=== PATIENT | female | born 1980 | race Hispanic/Latino ===

== ENCOUNTER 2018-01-25 15:00 | Outpatient (CLI) | payer OTHER | END 2018-01-25 15:01 | disposition home or self-care (01) | LOC: BICMAMMO 15:00 | PROVIDERS: ATTEND Internal Medicine Cardiovascular Disease | DX: N63.0 Unspecified lump in unspecified breast (principal) | CPT/HCPCS: 77066; G0279 ==

== ENCOUNTER 2018-04-12 09:44 | Outpatient (CLI) | payer OTHER | END 2018-04-12 09:45 | disposition home or self-care (01) | LOC: SCSMRI 09:44 | PROVIDERS: ATTEND Nurse Practitioner Family | DX: M47.816 Spondylosis without myelopathy or radiculopathy, lumbar region (principal) | CPT/HCPCS: 72148 ==

== ENCOUNTER 2018-04-29 09:33 | Outpatient (CLI) | payer OTHER | END 2018-04-29 09:34 | disposition home or self-care (01) | LOC: BICULT 09:33 | PROVIDERS: ATTEND Family Medicine | DX: N28.1 Cyst of kidney, acquired (principal) | CPT/HCPCS: 76770 ==

== ENCOUNTER 2018-10-26 20:30 | Outpatient (CLI) | payer OTHER | END 2018-10-26 20:31 | disposition home or self-care (01) | LOC: SLEEPLAB 20:30 | PROVIDERS: ATTEND Family Medicine | DX: G47.33 Obstructive sleep apnea (adult) (pediatric) (principal); K21.9 Gastro-esophageal reflux disease without esophagitis; R06.83 Snoring; G47.12 Idiopathic hypersomnia without long sleep time | CPT/HCPCS: 95810 ==

== ENCOUNTER 2019-03-14 08:54 | Outpatient (CLI) | payer OTHER ==
--- NOTE | 2019-03-14 10:13 | CT ---
CT ABDOMEN AND PELVIS WITH AND WITHOUT IV CONTRAST: HISTORY: Hematuria, recurrent UTI. FINDINGS: The lung bases are clear. The liver, spleen, pancreas, and adrenal glands are normal. No calcified gallstones are seen. No calculi are seen in the kidneys, ureters, or the urinary bladder. No hydroureteral nephrosis iden tified on either side. Postcontrast images demonstrate an 8 mm low-density lesion in the right media l renal cortex in the superior pole corresponding to the cyst seen on the MRI of lumbar spine dated . There is normal contrast excretion into the ureters and the urinary bladder. No free air, free fluid, or lymphadenopathy is seen in the abdomen or pelvis. Uterus and ovaries are present. There are postop changes of bilateral tubal ligation. There is an 11 mm low-density lesio n in the right ovary with enhancing granulated margins consistent with corpus luteal cyst. No acute osseous abnormality is seen. IMPRESSION: 1. No CT evidence of urinary tract calculi or obstruction. 2. Right renal cyst. 3. Small corpus luteal cyst in the right ovary. POS: [facility]
[2019-03-14] MEDS ORDERED: Iopamidol 370 76% 100 ML VIAL ONE (18:08)
== END 2019-03-14 08:55 | disposition home or self-care (01) ==
LOC: SCSCT 08:54
PROVIDERS: ATTEND Urology
DX: K59.00 Constipation, unspecified (principal); N28.1 Cyst of kidney, acquired; N83.11 Corpus luteum cyst of right ovary; Z87.440 Personal history of urinary (tract) infections; Z87.448 Personal history of other diseases of urinary system
CPT/HCPCS: 74178; Q9967

== ENCOUNTER 2023-09-16 14:59 | Outpatient (CLI) | payer OTHER | END 2023-09-16 15:00 | disposition home or self-care (01) | LOC: BICRAD 14:59 | PROVIDERS: ATTEND Nurse Practitioner Family | DX: M47.22 Other spondylosis with radiculopathy, cervical region (principal) | CPT/HCPCS: 72052 ==